=== PATIENT | male | born 1975 | race Caucasian/White ===

== ENCOUNTER 2019-12-23 10:03 | Emergency (ER) | payer OTHER ==
[~2019-12-23] VITALS: Ht 187.9 cm; Wt 95.3 kg
[2019-12-23] MEDS ORDERED: Bactroban Oint22 GM T (10:55)
[2019-12-23] MEDS ORDERED: DOXYCYCLINE100 M3 PO (10:55)
== END 2019-12-23 11:00 | disposition home or self-care (01) ==
LOC: ED 10:03
DX: L08.9 Local infection of the skin and subcutaneous tissue, unspecified (principal); B95.8 Unspecified staphylococcus as the cause of diseases classified elsewhere; F17.200 Nicotine dependence, unspecified, uncomplicated; Z88.0 Allergy status to penicillin

== ENCOUNTER → 2020-07-02 | Outpatient (CLI) | payer OTHER ==
[~2020-07-02] MED LIST: Bactroban Oint22 GM T; DOXYCYCLINE100 M3 PO
== END ==
LOC: RAD 09:36
PROVIDERS: ATTEND Emergency Medicine
DX: R06.02 Shortness of breath (principal); R05 Cough; R50.9 Fever, unspecified

== ENCOUNTER 2022-11-01 13:51 | Emergency (ER) | payer SELFPAY ==
[~2022-11-01] VITALS: Ht 187.9 cm; Wt 90.7 kg
== END 2022-11-01 15:46 | disposition left against medical advice (07) ==
LOC: ED 13:51
DX: R19.7 Diarrhea, unspecified (principal); Z53.21 Procedure and treatment not carried out due to patient leaving prior to being seen by health care provider